=== PATIENT | female | born 1975 | race Caucasian/White ===

== ENCOUNTER 2019-01-29 08:48 | Emergency (ER) | payer BC ==
[~2019-01-29] VITALS: Ht 167.6 cm; Wt 120.2 kg
[2019-01-29 09:40] LABS: BASOPHILS ABSOLUTE AUTO 0.03 K/mm3 (0.00-0.23); BASOPHILS PERCENT AUTO 0 % (0-2); EOSINOPHILS ABSOLUTE AUTO 0.15 K/mm3 (0.00-0.68); EOSINOPHILS PERCENT AUTO 2 % (0-6); Hematocrit 41.4 % (33.0-51.0); Hemoglobin 13.5 g/dL (11.5-16.0); IMMATURE GRAN ABSOLUTE AUTO 0.02 K/mm3 (0.00-0.10); IMMATURE GRAN PERCENT AUTO 0 % (0-1); LYMPHOCYTES ABSOLUTE AUTO 2.93 K/mm3 (0.84-5.20); LYMPHOCYTES PERCENT AUTO 34 % (21-46); MONOCYTES ABSOLUTE AUTO 0.56 K/mm3 (0.16-1.47); MONOCYTES PERCENT AUTO 7 % (4-13); Mean Corpuscular HGB 29.2 pg (26.0-34.0); Mean Corpuscular HGB Conc 32.6 g/dL (31.5-36.5); Mean Corpuscular Volume 89 fL (80-100); Mean Platelet Volume 9.9 fL (9.1-12.4); NEUTROPHILS ABSOLUTE AUTO 4.99 K/mm3 (1.96-9.15); NEUTROPHILS PERCENT AUTO 58 % (41-73); Platelet Count 227 K/mm3 (150-400); RDW Coefficient Variation 12.5 % (11.7-14.2); RDW Standard Deviation 40.9 fL (35.1-46.3); Red Blood Cell Count 4.63 M/mm3 (3.80-5.20); White Blood Cell Count 8.68 K/mm3 (4.00-11.30)
[2019-01-29 10:03] LABS: Troponin I <0.015 ng/mL (0.000-0.040)
[2019-01-29 10:07] LABS: Alanine Aminotransfer (ALT/SGP 37 U/L (12-78); Albumin, Blood 3.5 g/dL (3.4-5.0); Albumin/Globulin Ratio 0.9 (0.8-1.8); Alk Phos 62 U/L (50-136); Anion Gap 5 mmol/L (6-16); Aspartate Aminotrans (AST/SGOT 21 U/L (12-37); Bilirubin, Total 0.3 mg/dL (0.1-1.0); Blood Urea Nitrogen 14 mg/dL (8-24); Bun/Creatinine Ratio 20.9 (12.0-20.0); CO2, Blood 28 mmol/L (21-32); Calcium, Blood 8.8 mg/dL (8.5-10.1); Chloride, Blood 106 mmol/L (98-108); Creatinine, Blood 0.67 mg/dL (0.40-1.00); Globulin, Blood 3.7 g/dL (2.2-4.0); Glomerular Filtration Rate >60 (60-); Glucose, Blood 107 mg/dL (70-99); Potassium, Blood 3.6 mmol/L (3.5-5.5); Sodium, Blood 139 mmol/L (136-145); Total Protein, Blood 7.2 g/dL (6.4-8.2)
[2019-01-29] MEDS ORDERED: Alprazolam1 MG PO (10:39)
[2019-01-29] MEDS ORDERED: Potassium Chlo20 ME1 PO (10:40)
[2019-01-29] MEDS ORDERED: FUROSEMIDE20 MG PO (10:40)
[2019-01-29] MEDS ORDERED: Metformin HCl850 MG PO (10:43)
[2019-01-29] MEDS ORDERED: BUPROPION HCL200 MG (10:43)
== END 2019-01-29 14:33 | disposition left against medical advice (07) ==
LOC: ER 08:48
PROVIDERS: Emergency Medicine
DX: M54.2 Cervicalgia (principal); Z79.899 Other long term (current) drug therapy; Z79.84 Long term (current) use of oral hypoglycemic drugs
CPT/HCPCS: 36415; 70450; 71046; 80053; 84484; 85025; 93005; 93010; 99284-25

== ENCOUNTER 2019-07-18 08:42 | Day surgery (SDC) | payer BC ==
[~2019-07-18 08:42] MED LIST: Alprazolam1 MG PO; BUPROPION HCL200 MG; FUROSEMIDE20 MG PO; Metformin HCl850 MG PO; Potassium Chlo20 ME1 PO
== END 2019-07-18 22:44 | disposition home or self-care (01) ==
LOC: MOI MAM 08:42
DX: C50.919 Malignant neoplasm of unspecified site of unspecified female breast (principal); Z17.0 Estrogen receptor positive status [ER+]
CPT/HCPCS: 19081; 88305; 88342; 88360

== ENCOUNTER 2019-07-27 09:35 | Day surgery (SDC) | payer BC, OTHER | END 2019-07-27 23:01 | disposition home or self-care (01) | LOC: MOI US 09:35 | DX: C50.911 Malignant neoplasm of unspecified site of right female breast (principal); R59.0 Localized enlarged lymph nodes | CPT/HCPCS: 38505; 76942; A4648 ==

== ENCOUNTER 2019-08-17 10:46 | Day surgery (SDC) | payer BC, OTHER ==
[~2019-08-17] VITALS: Ht 167.6 cm; Wt 121.1 kg
--- NOTE | 2019-08-17 11:46 | NUR ---
INTO SDS VIA . History, Chart, Medications and Allergies reviewed before start of procedure.Patient confirms NPO status and agrees with scheduled surgery. Lungs clear T/O to Auscultation. PER DR. GARCIA, PT WILL BE ADMITTED TO EXTENDED RECOVERY AND WILL BE DISCHARGED TOMORROW.
--- NOTE | 2019-08-17 12:21 | NUR ---
Ambulatory in Day Surgery History, Chart, Medications and Allergies reviewed before start of procedure.Patient confirms NPO status and agrees with scheduled surgery. Patient reports completing Chlorhexadine shower X2 prior to admission to hospital.Surgical site prepped with 2% Chlorhexidine cloth wipe. Lungs clear T/O to Auscultation. Patient States Post-Procedure ride home has been arranged WITH DAUGHTER
--- NOTE | 2019-08-17 16:03 | NUR ---
REPORT GIVEN TO LEONOR ANDRADE RN.
--- NOTE | 2019-08-17 16:50 | NUR ---
PT WAS TRANSFERED TO DAY SURGERY A/O ICE PACK TO OP SITE TOLERATED PO INTAKE AND I HAVE NOW GIVEN HER A NORCO FOR PAIN RELIEF. SHE IS PLEASANT AND VISITS WITH STAFF PERSONAL BELONGINGS WITH PT REPORT TO WALTER CORLEY
--- NOTE | 2019-08-17 17:36 | NUR ---
Patient up to Ambulate independently. Gait steady. Discharge instructions reviewed with patient. Patient verbalizes understanding. Copy given to patient to take home. Discharged via wheelchair to private car for ride home WITH DAUGHTER.
== END 2019-08-17 23:12 | disposition home or self-care (01) ==
LOC: ORSCMMR 10:46 → ORD 11:00 → ORSCMMR 11:00
PROVIDERS: Surgery
PROC: 05HN33Z Insertion of Infusion Device into Left Internal Jugular Vein, Percutaneous Approach (ICD-10-PCS; principal; 2019-08-17 14:15)
PROC: B5141ZA Fluoroscopy of Left Jugular Veins using Low Osmolar Contrast, Guidance (ICD-10-PCS; principal; 2019-08-17 14:15)
DX: T82.524A Displacement of infusion catheter, initial encounter (principal); C50.811 Malignant neoplasm of overlapping sites of right female breast; E11.9 Type 2 diabetes mellitus without complications; E66.01 Morbid (severe) obesity due to excess calories; Z68.41 Body mass index [BMI] 40.0-44.9, adult; Z79.899 Other long term (current) drug therapy
CPT/HCPCS: 77001; A9270-GY; C1788; J0690; J1100; J1642; J2250; J2370; J2405; J2704; J2765; J3010; J7120

== ENCOUNTER 2020-06-23 06:05 | Day surgery (SDC) | payer OTHER ==
[~2020-06-23] VITALS: Ht 167.6 cm; Wt 116.5 kg
[~2020-06-23 06:05] MED LIST changes: +Amaryl2 MG PO
--- NOTE | 2020-06-23 07:04 | NUR ---
Ambulatory in Day Surgery. History, Chart, Medications and Allergies reviewed before start of procedure.Patient confirms NPO status and agrees with scheduled surgery. Patient reports completing Chlorhexadine shower X2 prior to admission to hospital.Surgical site prepped with 2% Chlorhexidine cloth wipe. Lungs clear T/O to Auscultation. PT REQUESTED TO LEAVE BRACELETES AND RINGS ON. WRAPPED THEM WITH COBAND.
[2020-06-23 10:11] LABS: Appearance, Urine Clear (Clear); Bilirubin, Urine Neg (Neg); Blood, Urine 2+ (Neg); Color, Urine Yellow (P-Yellow); Glucose Qualitative, Urine Neg (Neg); Ketones, Urine Neg (Neg); Leukocyte Esterase, Urine Neg (Neg); Nitrite, Urine Neg (Neg); Protein, Urine 1+ (Neg); Specific Gravity, Urine 1.025 (1.003-1.022); Urobilinogen, Urine NORM (Normal)
[2020-06-23 10:33] LABS: Bacteria Rare /hpf; Squamous Epithelial Cells Rare /hpf (Few); White Blood Cells, Urine 0-2 /hpf (0-5)
[2020-06-23 10:34] LABS: Mucus Light (0-Heavy)
--- NOTE | 2020-06-23 14:01 | NUR ---
PT ARRIVED FROM PACU VIA [facility] REPORT TAKEN FROM TERRY FROM PACU. PTS VITALS STABLE, PT ON 2LNC SPO2 98% ON RA, LOTT IN PLACE DRAINING LIGHT YELLOW URINE, 18G IN RFA INFUSLING LR, PT TOLORALED PO FLUIDS AND ICE CHIPS, REQUESTING PUDDING, PT REPORTS PAIN BEING TOLRABLE AT A RATE 4/10.
[2020-06-23] MEDS ORDERED: IBUP800 (14:18)
[2020-06-23] MEDS ORDERED: OXAYDO5 M1 (14:18)
--- NOTE | 2020-06-23 15:00 | NUR ---
PT AMBULATING AND TOLRATING PO LIQUID AND FOOD. PT VOIDED ONE UNMEASURED VOID AND 100CC VOID WITH A POST VOID BLADDER SCAN SHOWING 17CC, STERI STRIPS REPLACED. PT REVIEWED AND SIGNED POST OP INSTRUCTIONS AND HAD NO FURTHUR QUESTIONS. SL D/C. PT WILL FOLLOW UP WITH IN 2 WEEKS AND SIX WEEKS.
== END 2020-06-23 15:12 | disposition home or self-care (01) ==
LOC: ORSCMMR 06:05 → ORD 07:30 → ORSCMMR 07:30 → BC 11:10 → ORSCMMR 15:12 → BC 15:12
PROVIDERS: Obstetrics & Gynecology
PROC: 0UT9FZZ Resection of Uterus, Via Natural or Artificial Opening With Percutaneous Endoscopic Assistance (ICD-10-PCS; principal; 2020-06-23 07:30)
PROC: 0UT2FZZ Resection of Bilateral Ovaries, Via Natural or Artificial Opening With Percutaneous Endoscopic Assistance (ICD-10-PCS; principal; 2020-06-23 07:30)
PROC: 0UT7FZZ Resection of Bilateral Fallopian Tubes, Via Natural or Artificial Opening With Percutaneous Endoscopic Assistance (ICD-10-PCS; principal; 2020-06-23 07:30)
DX: Z85.3 Personal history of malignant neoplasm of breast (principal); R10.2 Pelvic and perineal pain; N94.10 Unspecified dyspareunia; Q50.5 Embryonic cyst of broad ligament; I10 Essential (primary) hypertension; E11.9 Type 2 diabetes mellitus without complications; E66.01 Morbid (severe) obesity due to excess calories; Z68.41 Body mass index [BMI] 40.0-44.9, adult; Z79.899 Other long term (current) drug therapy
CPT/HCPCS: 81001; 82947; 88307; A9270; J0171; J0690; J1100; J1885; J2250; J2405; J2704; J3010; J7120

== ENCOUNTER → 2021-02-10 | Outpatient (CLI) | payer OTHER ==
[~2021-02-10] MED LIST changes: +IBUP800; +OXAYDO5 M1
== END | disposition home or self-care (01) ==
LOC: LAB SHORT 11:55 → LAB 11:55
DX: N30.00 Acute cystitis without hematuria (principal)
CPT/HCPCS: 87086

== ENCOUNTER 2023-02-01 13:03 | Emergency (ER) | payer BC ==
[~2023-02-01] VITALS: Ht 167.6 cm; Wt 113.4 kg
[2023-02-01 13:40] LABS: Hematocrit 38.4 % (33.0-51.0); Hemoglobin 13.4 g/dL (11.5-16.0); Mean Corpuscular HGB Conc 34.9 g/dL (31.5-36.5); Mean Corpuscular Volume 86 fL (80-100); Mean Platelet Volume 10.3 fL (9.1-12.4); Platelet Count 153 K/mm3 (150-400); RDW Coefficient Variation 12.5 % (11.7-14.2); RDW Standard Deviation 39.7 fL (35.1-46.3); Red Blood Cell Count 4.46 M/mm3 (3.80-5.20); White Blood Cell Count 5.34 K/mm3 (4.00-11.30)
[2023-02-01] MEDS ORDERED: LETROZOLE2.5 M3 PO (13:54)
[2023-02-01] MEDS ORDERED: OZEMPIC2 MG/0.75 SQ (13:55)
[2023-02-01] MEDS ORDERED: [UNRECOGNIZED DRUG - CODE] PO (13:55)
[2023-02-01] MEDS ORDERED: ESCI10 PO (13:55)
[2023-02-01] MEDS ORDERED: BUPROPION HCL200 M1 PO (13:55)
[2023-02-01] MEDS ORDERED: ONDA4ODT (13:56)
[2023-02-01 14:00] LABS: Albumin, Blood 3.6 g/dL (3.4-5.0); Albumin/Globulin Ratio 0.7 (0.8-1.8); Bilirubin, Total 0.3 mg/dL (0.1-1.0); Bun/Creatinine Ratio 10.4 (12.0-20.0); Calcium, Blood 8.6 mg/dL (8.5-10.1); Creatinine, Blood 0.77 mg/dL (0.40-1.00); Potassium, Blood 3.8 mmol/L (3.5-5.5); Total Protein, Blood 8.6 g/dL (6.4-8.2)
[2023-02-01 14:05] LABS: BASOPHILS ABSOLUTE MAN 0.05 K/mm3 (0.00-0.23); BASOPHILS PERCENT MAN 1 % (0-2); EOSINOPHILS PERCENT MAN 0 % (0-6); LYMPHOCYTES ABSOLUTE MAN 0.37 K/mm3 (0.84-5.20); LYMPHOCYTES PERCENT MAN 7 % (21-46); MONOCYTES ABSOLUTE MAN 0.16 K/mm3 (0.16-1.47); MONOCYTES PERCENT MAN 3 % (4-13); NEUTROPHILS ABSOLUTE MAN 4.75 K/mm3 (1.96-9.15); SEG NEUTROPHILS PERCENT MAN 89 % (41-73); TOTAL CELLS COUNTED 100
[2023-02-01 14:25] LABS: Influenza A, PCR NEGATIVE (NEGATIVE); Influenza B, PCR NEGATIVE (NEGATIVE); Resp Syncytial Virus, PCR NEGATIVE (NEGATIVE)
[2023-02-01 14:27] LABS: SARS-Cov-2 (COVID-19) PCR, MMC POSITIVE (NEGATIVE)
[2023-02-01] MEDS ORDERED: PAXLOVID 150-11 EACH PO (15:02)
[2023-02-01] MEDS ORDERED: ONDA4ODT MM (15:02)
[2023-02-01 15:30] VITALS: BP 116/77
== END 2023-02-01 15:44 | disposition home or self-care (01) ==
LOC: ER 13:03
PROVIDERS: Emergency Medicine; Physician Assistant
DX: U07.1 COVID-19 (principal); E86.0 Dehydration; R07.9 Chest pain, unspecified; Z91.048 Other nonmedicinal substance allergy status; Z79.899 Other long term (current) drug therapy
CPT/HCPCS: 0241U; 71045; 80053; 84484; 85025; 93005; 93010; 96374; 99285-25; A9270; J2405